=== PATIENT | male | born 1955 | race Caucasian/White ===

== ENCOUNTER 2016-09-22 18:49 | Observation (INO) | payer BC ==
[2016-09-22] MEDS ORDERED: Ondansetron 4 MG/2 ML SDV IV ONE (19:26)
[2016-09-22] MEDS ORDERED: Sodium Chloride 0.9% 1,000 ML IV ONE (19:26)
[2016-09-22] MEDS ORDERED: Meclizine 12.5 MG Tab PO ONE (19:26)
--- NOTE | 2016-09-22 19:29 | EDM.PDOC ---
ED HPI GENERAL MEDICAL PROBLEM - General Chief Complaint: General Stated Complaint: BY AMBULANCE Time Seen by Provider: 09/22/16 19:27 Source of Information: Reports: Patient History Limitations: Reports: No Limitations - History of Present Illness INITIAL COMMENTS - FREE TEXT/NARRATIVE: sudden onset spinning sensation when moves unable keep steady with N&V. Treatments WEED INSPECTOR: Reports: EKG, Other (see below) Other Treatments WEED INSPECTOR: in ambulance - Related Data Allergies Allergy/AdvReac Type Severity Reaction Status Date / Time No Known Allergies Allergy Verified 09/22/16 18:49 Past Medical History Cardiovascular History: Reports: ND, Stents Other Cardiovascular History: approx 10-12 years ago - Infectious Disease History Infectious Disease History: Reports: Chicken Pox Social & Family History - Family History Family Medical History: Unobtainable - Tobacco Use Smoking Status *Q: Current Every Day Smoker Years of Tobacco use: 40 Packs/Tins Daily: 1 - Caffeine Use Caffeine Use: Reports: None - Alcohol Use Days Per Week of Alcohol Use: 3 Number of Drinks Per Day: 6 Total Drinks Per Week: 18 - Recreational Drug Use Recreational Drug Use: No ED ROS GENERAL - Review of Systems Review Of Systems: ROS reveals no pertinent complaints other than HPI. ED EXAM, GENERAL - Physical Exam Exam: See Below Exam Limited By: No Limitations General Appearance: Alert, WD/WN, Mild Distress, Other (vertigo) Eye Exam: Bilateral Eye: Nystagmus (none grossly), PERRL (pupils ER @ 4mm) Ears: Hearing Grossly Normal Throat/Mouth: Normal Voice, No Airway Compromise Head: Atraumatic Neck: Non-Tender, Full Range of Motion Respiratory/Chest: No Respiratory Distress Cardiovascular: Regular Rate, Rhythm GI/Abdominal: Soft, Non-Tender Neurological: Alert, Oriented, Normal Cognition, No Motor/Sensory Deficits Psychiatric: Normal Affect, Normal Mood Skin Exam: Warm, Dry Lymphatic: No Adenopathy Course - Vital Signs Last Recorded V/S: Last Vital Signs Temp 36.0 C 09/22/16 20:22 Pulse 59 L 09/22/16 20:22 Resp 20 09/22/16 20:22 BP 128/77 09/22/16 18:56 Pulse Ox 99 09/22/16 20:22 - Orders/Labs/Meds Orders: Active Orders 24 hr Category Date Time Status Head wo Cont [CT] Urgent Exams 09/22/16 21:21 Taken Labs: Laboratory Tests 09/22/16 09/22/16 Range/Units 19:20 19:20 WBC 10.4 H (5.0-10.0) 10^3/uL RBC 4.51 L (4.6-6.2) 10^6/uL Hgb 13.3 L (14.0-18.0) g/dL Hct 40.4 (40.0-54.0) % MCV 89.6 (80-100) fL MCH 29.5 (27.0-34.0) pg MCHC 32.9 L (33.0-35.0) g/dL Plt Count 299 (150-450) 10^3/uL Neut % (Auto) 79.0 H (42.2-75.2) % Lymph % (Auto) 13.5 L (20.5-50.1) % Harvey % (Auto) 6.2 (2-8) % Eos % (Auto) 1.1 (1.0-3.0) % Baso % (Auto) 0.2 (0.0-1.0) % Sodium 137 (135-145) mmol/L Potassium 3.4 L (3.6-5.0) mmol/L Chloride 104 (101-111) mmol/L Carbon Dioxide 23.0 (21.0-31.0) mmol/L Anion Gap 13.4 BUN 17 (7-18) mg/dL Creatinine 0.8 (0.6-1.3) mg/dL Est Cr Clr Drug Dosing 95.39 mL/min Estimated GFR (MDRD) > 60 BUN/Creatinine Ratio 21.25 Glucose 109 H (74-105) mg/dL Calcium 8.5 (8.4-10.2) mg/dl Total Bilirubin 0.6 (0.2-1.0) mg/dL AST 22 (10-42) IU/L ALT 15 (10-60) IU/L Alkaline Phosphatase 52 (42-121) IU/L Total Protein 6.7 (6.7-8.2) g/dl Albumin 3.4 (3.2-5.5) g/dl Globulin 3.3 Albumin/Globulin Ratio 1.03 Meds: Medications Discontinued Medications Generic Name Dose Route Start Last Admin Trade Name Freq PRN Reason Stop Dose Admin Sodium Chloride 1,000 mls @ 999 mls/hr 09/22/16 19:26 09/22/16 19:32 Normal Saline IV 09/22/16 20:26 999 mls/hr .BOLUS ONE Administration Meclizine HCl 12.5 mg 09/22/16 19:26 09/22/16 19:32 Antivert PO 09/22/16 19:27 12.5 mg ONETIME ONE Administration Ondansetron HCl 4 mg 09/22/16 19:26 09/22/16 19:32 Zofran IV 09/22/16 19:27 4 mg ONETIME ONE Administration Promethazine HCl 25 mg 09/22/16 20:35 09/22/16 20:41 Phenergan IM 09/22/16 20:36 25 mg ONETIME ONE Administration - Re-Assessments/Exams Free Text/Narrative Re-Assessment/Exam: 09/22/16 19:50 re-exam: s/p Rx=better 09/22/16 20:23 continual improvement 09/22/16 20:36 unable to sit up felt worse. 09/22/16 21:49 CAT results discussed with Dr Arce who kindly admitted Pt to observation Departure - Departure Time of Disposition: 21:50 Disposition: Refer to Observation Condition: good Clinical Impression: Vertigo Sinusitis Qualifiers: Sinusitis location: maxillary Chronicity: acute Recurrence: non-recurrent Qualified Code(s): J01.00 - Acute maxillary sinusitis, unspecified - Discharge Information Instructions: Vertigo, [id number] Forms: ED Department Discharge Additional Instructions: 1) rest and avoid vigorous activities 2) take ANTIVERT 12.5MG 2 TO 3 TIMES DAILY FOR VERTIGO 3) follow up at clinic or recheck as needed - My Orders Last 24 Hours: My Active Orders 09/22/16 21:21 Head wo Cont [CT] Urgent - Assessment/Plan Last 24 Hours: My Active Orders 09/22/16 21:21 Head wo Cont [CT] Urgent
[2016-09-22 19:50] LABS: CHLORIDE,CL 104 mmol/L (101-111); SODIUM,NA 137 mmol/L (135-145)
[2016-09-22] MEDS ORDERED: Promethazine 25 MG/ML SDV IM ONE (20:35)
[2016-09-22] MEDS ORDERED: Acetaminophen 325 MG Tab PO PRN (23:36)
[2016-09-22] MEDS ORDERED: Zolpidem 5 MG Tab PO PRN (23:36)
[2016-09-22] MEDS ORDERED: Ondansetron 4 MG Tab.DIS PO PRN (23:36)
[2016-09-22] MEDS ORDERED: Nitroglycerin 0.4 MG Tab.SL SL PRN (23:45)
[2016-09-22] MEDS ORDERED: Sodium Chloride 0.9% with KCl 1,000 ML IV SCH (23:45)
[2016-09-22] MEDS ORDERED: Meclizine 12.5 MG Tab PO SCH (23:45)
[2016-09-22] MEDS: Amoxicillin 500 MG Cap PO SCH (23:55)
--- NOTE | 2016-09-23 01:53 | HP ---
CHIEF COMPLAINT: Dizziness and vomiting. HISTORY OF PRESENT ILLNESS: Mr. Jeffrey Lancaster is a 61-year-old male with medical history significant for hypertension; hyperlipidemia; coronary artery disease, status post stents placed x5 in the past, the last stent placement was more than a year back; chronic history of tobacco use, presents to the ER with complaints of vertigo and had nausea and vomiting. The patient could not be discharged from the ER after receiving some oral medications, and so he is being admitted to the hospital. At this time, the patient claims that the vertigo started around 5:00 p.m. He is from [place] and visiting [place]. He was at the [facility] when this happened. The vertigo started suddenly with acute onset, he wanted to go to the bathroom as he felt like throwing up and when he stood up, he could not hardly take his step as he felt very much dizzy. He graded the dizziness as 9/10 in intensity, which got aggravated on standing up and ambulation, relieved with resting and lying down associated with nausea and vomiting. The patient had at least 5 to 6 episodes of vomiting since this evening, bilious stained, no blood seen in the vomitus. He denied any fevers or chills in the last few days. No complaints of headache. No complaints of changes in the vision. No complaints of hearing loss. No complaints of chest pains or shortness of breath. No complaints of syncopal episode. The patient denied any history of similar complaints in the past. Two weeks back, he was having some pain in the right ear and they have some ear drops and had subsided some of his symptoms. Currently, he denied any fevers or chills in the last few days. The patient denied any history of chest pains on exertion. No history of dyspnea on exertion. No history of orthopnea or paroxysmal nocturnal dyspnea. The patient denied any history of hematemesis, hematochezia, or melanotic stools. Normal bowel and bladder habits otherwise. REVIEW OF SYSTEMS: A complete review of system including skin, ear, nose, and throat, cardiovascular system, respiratory system, gastrointestinal system, genitourinary system, hematology, oncology, neurology, allergy, immunology, constitutional were all evaluated and were negative except for the above-said notes. PAST MEDICAL HISTORY: Significant for hypertension; hyperlipidemia; coronary artery disease, status post stents placed; and chronic tobacco use. PAST SURGICAL HISTORY: Significant for coronary angioplasty. FAMILY HISTOR.: Reviewed. No significant family history noted at this time. ALLERGIES: The patient is noted to have allergies to clopidogrel, codeine, mercaptopurine, Pentasa, sulfa antibiotics, and terbutaline sulfate. SOCIAL HISTORY: The patient just continues to smoke. He smokes around 1 pack of cigarettes a day. No history of alcohol intake. PHYSICAL EXAMINATION: Vital Signs: Temperature of 96.8, pulse of 59, blood pressure of 128/77, respiratory rate of 20, saturating at 99% on room air. General Appearance: The patient is well oriented to time, place, and person. Follows commands spontaneously. HEENT: Atraumatic. Examination of the right ear did not elicit any tenderness. Pupils equally react to light. Cardiovascular System: S1, S2 heard with normal intensity. No gallops. Respiratory: Clear to auscultation bilaterally. No wheeze. No crepitations. Abdomen: Soft. Bowel sounds positive. Nontender. No rigidity. No guarding. No rebound tenderness. Extremities: No edema in bilateral lower extremities. Neurology: No gross focal neurological deficits. SKIN: No acute rash noted. HOME MEDICATIONS: Include: 1. Ramipril 1 tablet daily. 2. Simvastatin 1 tablet daily. 3. Atenolol 25 mg daily. 4. Aspirin 325 mg daily. LABORATORY DATA: WBC 10.4, hemoglobin 13.3, hematocrit 40.4, sodium 137, potassium 3.4, chloride 104, bicarb 23, anion gap 13.4, BUN 17, creatinine 0.8, glucose 109, AST 22, ALT 15, alkaline phosphatase 52. ASSESSMENT: 1. Benign positional vertigo. 2. Acute mastoiditis. 3. Hypertension. 4. Hyperlipidemia. 5. Hypokalemia. 6. Leukocytosis. 7. Coronary artery disease, status post stents placed. 8. Chronic tobacco use. PLAN: 1. Benign positional vertigo. The patient presents with benign positional vertigo. He is noted to have increased dizziness at movement or at least standing up he feels as if the room is spinning. The patient recently had ear pain [address] scan done today shows evidence of acute mastoiditis. The patient could have some labyrinthitis also associated with this mastoiditis. The patient denies any ongoing fevers or chills at this time. We will start him on meclizine 25 mg three times a day. Given his mastoiditis and mild leukocytosis, we will start him on antibiotic with amoxicillin 500 mg q.12 hourly and we will closely follow. We will keep him hydrated with IV fluids as he had profuse nausea and vomiting, at least 5 to 6 episodes, closely follow. 2. Hypokalemia. The patient noted to have mild hypokalemia with potassium of 3.4. We will replace with IV and oral potassium chloride. Recheck a basic metabolic panel in a.m. 3. Hypertension. The patient is currently on atenolol. He is noted to have bradycardia on the 12-lead EKG. We will decrease the dose of atenolol. He states atenolol every other day or every 48 hours, we will cut it down to 12.5 mg to avoid any severe bradycardia. We will continue with ramipril for his hypertension. 4. Coronary artery disease. The patient denied any ongoing chest pains. Given his vertigo, we will obtain troponin. His 12-lead EKG is benign without any significant ST elevation or ST depression, noted to have mild sinus bradycardia with heart rate of 58 on 12-lead EKG. 5. Deep vein thrombosis prophylaxis. We will have him on heparin 5000 subcutaneous q.8 hourly for deep vein thrombosis prophylaxis. 6. Tobacco use. The patient is educated about tobacco cessation. Strongly encouraged him to quit smoking, which he understands some over the same. One can try nicotine transdermal patch as needed. 7. Discussed with Dr. Tripp, ER physician, regarding the plan of care. Discussed with the patient and family members at bedside. Reviewed the labs and medications. Reviewed the old charts. [facility] /[id number]
[2016-09-23 07:01] LABS: CHLORIDE,CL 108 mmol/L (101-111); SODIUM,NA 139 mmol/L (135-145)
[2016-09-23] MEDS ORDERED: Diazepam 2 MG Tab PO PRN (08:00)
[2016-09-23] MEDS: Meclizine 12.5 MG Tab PO SCH ×3 (08:10→20:22)
[2016-09-23] MEDS ORDERED: Enoxaparin 30 MG/0.3 ML Syringe SUBCUT SCH (09:00)
[2016-09-23] MEDS ORDERED: Ramipril 5 MG Cap PO SCH ×2 (09:00→09:47)
[2016-09-23] MEDS: Amoxicillin 500 MG Cap PO SCH ×2 (09:31→20:22)
[2016-09-23] MEDS: Aspirin 325 MG Tab.EC PO SCH (09:31)
--- NOTE | 2016-09-23 10:57 | PN ---
DATE: 09/23/2016 SUBJECTIVE: Mr. Tonny Murphy is a 61-year-old male with medical history significant for hypertension, hyperlipidemia, coronary artery disease, status post stents placed in the past x5 admitted to the hospital with complaints of increasing dizziness and noted to have benign positional vertigo with acute mastoiditis. For the past 24 hours, the patient was started on oral amoxicillin and meclizine. Symptoms seems to be improving though he still continues to feel lightheadedness when he is ambulating. Denies any chest pain. No shortness of breath. No abdominal pain. No nausea. No vomiting. No diarrhea. Denies any headaches or changes in the vision. REVIEW OF SYSTEMS: Cardiovascular, respiratory, gastrointestinal, neurology, constitutional were all evaluated. PHYSICAL EXAMINATION: Vital Signs: Temperature of 98.1, pulse of 97, blood pressure 149/65, respiratory rate of 20, saturating at 100% on room air. General Appearance: The patient is well oriented to time, place, and person. Follows commands spontaneously. Cardiovascular System: S1, S2 heard with normal intensity. No gallops. Respiratory: Clear to auscultation bilaterally. No wheeze. No crepitations. Abdomen: Soft. Bowel sounds positive. Nontender. No rigidity. Extremities: No edema in bilateral lower extremities. MEDICATIONS: 1. Tylenol 650 every 4 hours as needed for pain. 2. Amoxicillin 500 mg every 12 hourly. 3. Aspirin 325 mg daily. 4. Atenolol 12.5 mg every other day. 5. Valium 2 mg twice a day as needed for dizziness. 6. Lovenox 30 mg subcutaneous daily. 7. Meclizine 25 mg twice a day. 8. Nitroglycerin 0.4 mg sublingual as needed for chest pain. 9. Zofran 4 mg every 4 hours as needed. 10.Ramipril 10 mg daily. 11.Zocor 40 mg at bedtime. 12.Ambien 5 mg at bedtime as needed for sleep. LABORATORY DATA: Reviewed. WBC 7.5, hemoglobin 13, hematocrit 39.9, and platelet count 298. Sodium 139, potassium 4.2, chloride 108, bicarb 26, BUN 10, creatinine 0.7. Calcium 8.5. ASSESSMENT: 1. Benign positional vertigo. 2. Acute mastoiditis. 3. Hypertension, uncontrolled. 4. Hyperlipidemia. 5. Coronary artery disease. PLAN: 1. Benign position vertigo. The patient was admitted with increasing dizziness and symptoms signs suggestive of benign positional vertigo. He is started on meclizine after which his symptoms seems to be improved, but continues to have mild lightheadedness when he is ambulating. Continue the IV fluids for now, and we will closely observe for next 24 hours, have him on fall precautions. 2. Acute mastoiditis. The patient's CT scan showed evidence of acute mastoiditis and the patient was having symptoms 2 weeks back with severe ear pain on the right side consistent with acute mastoiditis. The patient is started on amoxicillin as this could lead to possible labyrinthitis leading vertigo. We will continue with amoxicillin for now. 3. Hypertension, uncontrolled. The patient noted to have elevated blood pressure. This could be resulting from the stress. We will increase the ramipril to 10 mg daily. He is noted to have bradycardia, so we could not go up on atenolol at this time. Decrease atenolol to 12.5 mg every other day secondary to his bradycardia. 4. Coronary artery disease. The patient denies any ongoing chest pains for now. Continue with current treatment plan with statin, beta-immanuel, VICTORIANO inhibitor, and aspirin. 5. DVT prophylaxis. Continue with Lovenox for DVT prophylaxis. 6. Discussed with family members at bedside. 7. Possible discharge in a.m. if he remains hemodynamically stable. [facility] /[id number]
[2016-09-23] MEDS: Sodium Chloride 0.9% 10 ML Syringe FLUSH PRN (20:23)
[2016-09-23] MEDS ORDERED: Simvastatin 40 MG Tab PO SCH (21:00)
[2016-09-24] MEDS ORDERED: Atenolol 25 MG Tab PO SCH (08:00)
[2016-09-24] MEDS: Aspirin 325 MG Tab.EC PO SCH (08:32)
[2016-09-24] MEDS: Amoxicillin 500 MG Cap PO SCH (08:32)
[2016-09-24] MEDS: Meclizine 12.5 MG Tab PO SCH (08:32)
[2016-09-24] MEDS: Sodium Chloride 0.9% 10 ML Syringe FLUSH PRN (08:37)
[2016-09-24] MEDS ORDERED: Enoxaparin 40 MG/0.4 ML Syringe SUBCUT SCH (09:00)
[2016-09-24 11:28] VITALS: BP 151/78
--- NOTE | 2016-09-24 12:50 | DISCH ---
ADMITTING DIAGNOSES: 1. Benign positional vertigo. 2. Hypokalemia. 3. Nausea and vomiting. DISCHARGE DIAGNOSES: 1. Benign positional vertigo, resolved. 2. Acute mastoiditis on oral antibiotic. 3. Hypokalemia, resolved. HISTORY OF PRESENTING ILLNESS: Mr. Jeffrey Lancaster is a 61-year-old male with a medical history significant for hypertension; hyperlipidemia; coronary artery disease, status post stents placed x5 in the past; chronic tobacco use, admitted with complaints of increasing dizziness and vertigo and was noted to have benign positional vertigo. The patient complains of having right ear pain. A CT scan of the head done on this admission showed evidence of acute mastoiditis involving the right side. The patient was admitted to the hospital. He was started on oral antibiotic with amoxicillin and also on meclizine. His symptoms got resolved. He was noted to have hypokalemia, requiring oral potassium chloride supplement. He was able to ambulate well without any difficulty at the time of discharge. He is discharged home in stable condition. He is advised to continue taking the meclizine for next 3 days, and amoxicillin to complete 1 week course. He is advised to follow with an ENT clinic if he continues to have persistent symptoms of mastoiditis for further treatment plans at that time. He is advised to follow with his primary care physician in the next one week of time. DISCHARGE MEDICATIONS: Include: 1. Amoxicillin 500 mg every 12 hours for next 6 days. 2. Aspirin 325 mg daily. 3. Atenolol 25 mg as directed. The patient usually takes it every other day. 4. Meclizine 25 mg twice a day for next 3 days. 5. Nitroglycerin 0.4 mg every 5 minutes as needed for chest pain. 6. Ramipril 5 mg once a day. 7. Simvastatin 40 mg once a day. PHYSICAL EXAMINATION: Vital Signs: On the day of discharge, temperature of 98.5, pulse of 52, blood pressure 154/82, respiratory rate of 20, saturating at 98% on room air. General Appearance: The patient is well oriented to time, place, and person. Follows commands spontaneously. Cardiovascular System: S1 and S2 heard with normal intensity. No gallops. Respiratory: Clear to auscultation bilaterally. No wheeze. No crepitations. Abdomen: Soft. Bowel sounds positive. Nontender. No rigidity. Extremities: No edema in bilateral lower extremities. Neurology: No gross focal neurological deficits. Skin: No acute rash noted. ADMITTING CONDITION: Poor. CONDITION ON DISCHARGE: Stable. ACTIVITY: As tolerated. The patient will be advised not to drive if he feels dizzy, and not to operate any missionary if he feels dizzy. DIET: Cardiac healthy diet. FOLLOWUP: Follow with primary care physician in the next one week of time. Spent over 35 minutes of time in evaluating and treating this patient, and having discharge process, and explaining the risks, benefits, and complications of medications. [facility] /[id number] FLAVIO
--- NOTE | 2016-09-28 14:34 | EKG ---
09/22/2016 - GERMANIA CHAUDHRY R - EKG per my reading, shows sinus rhythm at the rate of 53. No significant specific changes, very questionable diffuse ST elevation. [facility] /[id number]
== END 2016-09-24 12:00 | disposition home or self-care (01) ==
LOC: DL.ED 18:49 → DL.MS 21:56 → UNDOADMOB 21:56 → DL.MS 23:35 → UNDOADMOB 23:35 → DL.MS 23:36
PROVIDERS: ADMIT Internal Medicine; ATTEND Internal Medicine
DX: H81.11 Benign paroxysmal vertigo, right ear (principal); H70.001 Acute mastoiditis without complications, right ear; E87.6 Hypokalemia; I25.810 Atherosclerosis of coronary artery bypass graft(s) without angina pectoris; I10 Essential (primary) hypertension; E78.5 Hyperlipidemia, unspecified; Z79.82 Long term (current) use of aspirin; Z79.899 Other long term (current) drug therapy; Z79.2 Long term (current) use of antibiotics; Z88.2 Allergy status to sulfonamides; Z88.8 Allergy status to other drugs, medicaments and biological substances; F17.210 Nicotine dependence, cigarettes, uncomplicated; D72.829 Elevated white blood cell count, unspecified; Z72.0 Tobacco use
CPT/HCPCS: 36415; 70450; 80048; 80053; 85025; 85027; 96361; 96372; 96374; 96375; 99285; A9270; G0378; J1650; J2405; J2550; J3480; J7030; J7050